=== PATIENT | female | born 1985 | race American Indian/Alaskan Native ===

== ENCOUNTER 2017-07-24 16:16 | Emergency (ER) | payer SELFPAY ==
[2017-07-24 16:26] VITALS: BP 142/91
[2017-07-24] MEDS ORDERED: NORCO 10/325 PO ONE (16:47)
--- NOTE | 2017-07-24 16:48 | Emergency Department Report ---
ED ENT HPI - General Chief complaint: Dental/Oral Stated complaint: MOUTH PAIN Time Seen by Provider: 07/24/17 16:39 Source: patient Mode of arrival: Ambulatory Limitations: No Limitations - History of Present Illness Initial comments: This is a 32 y.o. female presents with toothache for 1 month. She had a tooth break 1 month ago and pain has been on and off. She is taking ibuprofen to control pain. It was working until 4 days ago pain has been 10/10 and constant throbbing. Yesterday she was able to control the pain with ibuprofen but today pain is unrelieved. She is unable to eat or sleep and headache. She just started job and not sure what dentist will see her without insurance. Denies difficulty swallowing, SOB, and fever. MD complaint: tooth pain -: month(s) (1) Location: tooth # (2) Severity: severe Severity scale (0 -10): 10 Quality: other (throbbing) Consistency: constant Improves with: none Worsens with: eating Context- Dental: history of dental caries, trauma (cracked a tooth) Associated Symptoms: toothache - Related Data Previous Rx's Medication Instructions Recorded Last Taken Type Amoxicillin/Potassium Clav 1 each PO BID #20 tablet 07/24/17 Unknown Rx [Augmentin 875-125 Tablet] traMADol [Ultram 50 MG tab] 50 mg PO Q6HR PRN #20 tablet 07/24/17 Unknown Rx Allergies Allergy/AdvReac Type Severity Reaction Status Date / Time No Known Allergies Allergy Unverified 07/24/17 16:23 ED Dental HPI - General Chief complaint: Dental/Oral Stated complaint: MOUTH PAIN Time Seen by Provider: 07/24/17 16:39 Source: patient Mode of arrival: Ambulatory Limitations: No Limitations - Related Data Previous Rx's Medication Instructions Recorded Last Taken Type Amoxicillin/Potassium Clav 1 each PO BID #20 tablet 07/24/17 Unknown Rx [Augmentin 875-125 Tablet] traMADol [Ultram 50 MG tab] 50 mg PO Q6HR PRN #20 tablet 07/24/17 Unknown Rx Allergies Allergy/AdvReac Type Severity Reaction Status Date / Time No Known Allergies Allergy Unverified 07/24/17 16:23 ED Review of Systems ROS: Stated complaint: MOUTH PAIN Other details as noted in HPI Constitutional: denies: chills, fever ENT: dental pain. denies: ear pain, throat pain Respiratory: denies: cough, shortness of breath, wheezing Cardiovascular: denies: chest pain, palpitations Gastrointestinal: denies: abdominal pain, nausea, diarrhea Neurological: headache. denies: weakness, paresthesias ED Past Medical Hx - Past Medical History Previous Medical History?: No - Surgical History Past Surgical History?: No - Social History Smoking Status: Never Smoker Substance Use Type: Non Opiate Pain - Medications Home Medications: Home Medications Medication Instructions Recorded Confirmed Last Taken Type Amoxicillin/Potassium Clav 1 each PO BID #20 tablet 07/24/17 Unknown Rx [Augmentin 875-125 Tablet] traMADol [Ultram 50 MG tab] 50 mg PO Q6HR PRN #20 tablet 07/24/17 Unknown Rx ED Physical Exam - General Limitations: No Limitations General appearance: alert, in no apparent distress - ENT ENT exam: Present: mucous membranes moist, TM's normal bilaterally, other ( multiple dental caries, #2 fractured ) - Respiratory Respiratory exam: Present: normal lung sounds bilaterally. Absent: respiratory distress - Cardiovascular Cardiovascular Exam: Present: regular rate, normal rhythm, normal heart sounds. Absent: systolic murmur, diastolic murmur, rubs, gallop - GI/Abdominal GI/Abdominal exam: Present: soft, normal bowel sounds - Neurological Exam Neurological exam: Present: alert, oriented X3 ED Course Vital Signs 07/24/17 16:23 Temperature 98.3 F Pulse Rate 82 Respiratory 18 Rate Blood Pressure 142/91 O2 Sat by Pulse 99 Oximetry ED Medical Decision Making - Radiology Data Radiology results: image reviewed - Medical Decision Making This is a 32-year-old female that presents with toothache and headache for 4 days. Patient was examined by me. Distress noted. Given norco 10/325 mg po once in ER. Susceptible of dental caries and dental fracture. Discussed plan to start augmentin and tramadol and importance of following up with Dental to patient. She agreed with ER plan. Discharged home with augmentin and tramadol. Follow up with dentist and referral to [facility], [facility], and [facility]. Critical care attestation.: If time is entered above; I have spent that time in minutes in the direct care of this critically ill patient, excluding procedure time. ED Disposition Clinical Impression: Dental caries, Pain, dental Disposition: TO HOME OR SELFCARE Is pt being admited?: No Does the pt Need Aspirin: No Condition: Stable Instructions: Dental Caries (ED), Toothache (ED) Additional Instructions: Complete all days of augmentin as prescribed for 10 days. Follow up with Dentist in 24-72 hours. Prescriptions: Amoxicillin/Potassium Clav [Augmentin 875-125 Tablet] 1 each PO BID #20 tablet traMADol [Ultram 50 MG tab] 50 mg PO Q6HR PRN #20 tablet PRN Reason: Pain Referrals: [facility] [Outside] - 3-5 Days [facility] [Outside] - 3-5 Days [facility] [Outside] - 3-5 Days [facility] [Outside] - 3-5 Days Time of Disposition: 17:08 Print Language: SERBIAN
== END 2017-07-24 17:31 | disposition home or self-care (01) ==
LOC: ED 16:16
DX: K02.9 Dental caries, unspecified (principal)
CPT/HCPCS: 99282

== ENCOUNTER 2018-01-28 16:40 | Emergency (ER) | payer SELFPAY ==
[2018-01-28] MEDS ORDERED: NACL 0.9% 1000 ML 1,000 ML IV ONE (17:06)
[2018-01-28 17:35] LABS: Basophils % (Auto) 0.3 % (0.0-1.8); Eosinophils # (Auto) 0.1 K/mm3 (0.0-0.4); Eosinophils % (Auto) 1.3 % (0.0-4.3); Hematocrit 38.2 % (30.3-42.9); Hemoglobin 12.9 gm/dl (10.1-14.3); Lymphocytes # (Auto) 3.1 K/mm3 (1.2-5.4); Lymphocytes % (Auto) 34.6 % (13.4-35.0); Mean Corpuscular HGB Conc 34 % (30-34); Mean Corpuscular Hemoglobin 32 pg (28-32); Mean Corpuscular Volume 94 fl (79-97); Monocytes # (Auto) 0.6 K/mm3 (0.0-0.8); Monocytes % (Auto) 6.6 % (0.0-7.3); Platelet Count 368 K/mm3 (140-440); Red Blood Count 4.06 M/mm3 (3.65-5.03); Red Cell Distribution Width 13.6 % (13.2-15.2)
[2018-01-28 17:53] LABS: Alanine Aminotransferase 16 units/L (7-56); Albumin 4.3 g/dL (3.9-5); BUN/Creatinine Ratio 16; Blood Urea Nitrogen 14 mg/dL (7-17); Calcium 8.9 mg/dL (8.4-10.2); Hemolysis Index 9; Lipase 21 units/L (13-60)
[2018-01-28 18:49] LABS: Bilirubin,Urine NEG (Negative); Blood,Urine NEG (Negative); Color,Urine Yellow (Yellow); HCG Qualitative,Urine Negative (Negative); Mucus,Urine 3+ /HPF; Protein,Urine <15 mg/dL mg/dL (Negative); Urobilinogen,Urine < 2.0 mg/dL (<2.0)
[2018-01-29] MEDS ORDERED: SUBLIMAZE IV ONE (01:00)
[2018-01-29] MEDS ORDERED: ZOFRAN IV ONE (01:00)
--- NOTE | 2018-01-29 01:07 | Emergency Department Report ---
HPI - General Chief Complaint: Abdominal Pain Time Seen by Provider: 01/29/18 00:50 - HPI HPI: Room 10 The patient is a 32-year-old female presenting with a chief complaint of abdominal pain. The patient states symptoms began 2 days ago 5 hours after eating a pretzel dog from a restaurant. The patient states she developed nausea vomiting and diarrhea. Yesterday the patient continued to have nausea and vomiting. He then noticed a "lump"/source of pain just left and inferior to her umbilicus. Patient describes the pain as throbbing in nature. Patient denies dysuria, hematuria or vaginal discharge. Patient states her LMP occurred 01/14/2019 and was within normal limits. Patient denies any other forms of pain. Patient denies sick contacts. The patient gets her pain a score of 6/10 Location: [See above] Duration: 3 days Quality: Throbbing Severity:6/10 Modifying factors: [see above] Context: [see above] Mode of transportation: [not driving] ED Past Medical Hx - Past Medical History Additional medical history: h-pylori age 15 and treated - Surgical History Past Surgical History?: No Additional Surgical History: Skull fracture repair as a child - Family History Family history: no significant - Social History Smoking Status: Never Smoker Substance Use Type: Alcohol (rarely), Marijuana - Medications Home Medications: Home Medications Medication Instructions Recorded Confirmed Last Taken Type Amoxicillin/Potassium Clav 1 each PO BID #20 tablet 07/24/17 Unknown Rx [Augmentin 875-125 Tablet] traMADol [Ultram 50 MG tab] 50 mg PO Q6HR PRN #20 tablet 07/24/17 Unknown Rx Ciprofloxacin HCl [Cipro] 500 mg PO BID #20 tablet 01/29/18 Unknown Rx HYDROcodone/APAP 5-325 [[place] 1 - 2 each PO Q6HR PRN #14 tablet 01/29/18 Unknown Rx 5/325] Ibuprofen [Motrin 800 MG tab] 800 mg PO Q8HR PRN #20 tablet 01/29/18 Unknown Rx Promethazine [Phenergan TAB] 25 mg PO Q6HR PRN #20 tab 01/29/18 Unknown Rx Promethazine [Phenergan] 25 mg NE Q6HR PRN #5 supp.rect 01/29/18 Unknown Rx ED Review of Systems ROS: Stated complaint: POSS FOOD POISON Other details as noted in HPI Constitutional: fever (possibly subjective per mother) Eyes: denies: eye pain ENT: denies: throat pain Respiratory: no symptoms reported Cardiovascular: denies: chest pain Endocrine: no symptoms reported Gastrointestinal: abdominal pain, nausea, vomiting, diarrhea Genitourinary: denies: dysuria, hematuria, discharge, abnormal menses Musculoskeletal: denies: back pain Neurological: denies: headache Physical Exam - Physical Exam Vital Signs: Vital Signs 01/28/18 01/28/18 17:03 22:46 Temperature 98.8 F 98.1 F Pulse Rate 66 56 L Respiratory 18 16 Rate Blood Pressure 124/62 136/85 O2 Sat by Pulse 100 100 Oximetry Physical Exam: GENERAL: The patient is well-developed well-nourished female lying on stretcher not appearing to be in acute distress. [] HEENT: Normocephalic. Atraumatic. Extraocular motions are intact. Patient has moist mucous membranes. NECK: Supple. Trachea midline CHEST/LUNGS: Clear to auscultation. There is no respiratory distress noted. HEART/CARDIOVASCULAR: Regular. There is no tachycardia. There is no gallop rub or murmur. ABDOMEN: Abdomen is soft, with tenderness to palpation in all quadrants except for midepigastric and right upper quadrant. There is no rebound or guarding. Patient has normal bowel sounds. There is no abdominal distention. SKIN: There is no rash. There is no edema. There is no diaphoresis. NEURO: The patient is awake, alert, and oriented. The patient is cooperative. The patient has normal speech MUSCULOSKELETAL: There is left CVA tenderness. There is no evidence of acute injury. ED Course Vital Signs 01/28/18 01/28/18 17:03 22:46 Temperature 98.8 F 98.1 F Pulse Rate 66 56 L Respiratory 18 16 Rate Blood Pressure 124/62 136/85 O2 Sat by Pulse 100 100 Oximetry ED Medical Decision Making - Lab Data Result diagrams: 01/28/18 17:16 01/28/18 17:16 Laboratory Tests 01/28/18 01/28/18 01/28/18 17:16 17:16 17:56 WBC 9.1 RBC 4.06 Hgb 12.9 Hct 38.2 MCV 94 MCH 32 MCHC 34 RDW 13.6 Plt Count 368 Lymph % (Auto) 34.6 [place]cl[place] % (Auto) 6.6 Eos % (Auto) 1.3 Baso % (Auto) 0.3 Lymph # 3.1 [place]clain # 0.6 Eos # 0.1 Baso # 0.0 Seg Neutrophils % 57.2 Seg Neutrophils # 5.2 Sodium 140 Potassium 4.2 Chloride 104.3 Carbon Dioxide 25 Anion Gap 15 BUN 14 Creatinine 0.9 Estimated GFR > 60 BUN/Creatinine Ratio 16 Glucose 98 Calcium 8.9 Total Bilirubin 0.30 AST 21 ALT 16 Alkaline Phosphatase 88 Total Protein 6.9 Albumin 4.3 Albumin/Globulin Ratio 1.7 Lipase 21 Urine Color Yellow Urine Turbidity Slightly-cloudy Urine pH 6.0 Ur Specific [place] 1.024 Urine Protein <15 mg/dl Urine Glucose (UA) Neg Urine Ketones Neg Urine Blood Neg Urine Nitrite Neg Urine Bilirubin Neg Urine Urobilinogen < 2.0 Ur Leukocyte Esterase Lg Urine WBC (Auto) 82.0 H Urine RBC (Auto) 2.0 U Epithel Cells (Auto) < 1.0 Urine Mucus 3+ Urine HCG, Qual Negative - Radiology Data Radiology results: report reviewed (CT abdomen and pelvis), image reviewed (CT abdomen and pelvis) [address] [address] Cat Scan Report Signed Patient: MIGUEL ÁNGEL MARTE MR#: [id number] : 1985 Acct:[id number] Age/Sex: 32 / F ADM Date: 01/28/18 Loc: ED Attending Dr: Ordering Physician: JONATHAN CANTU MD Date of Service: 01/29/18 Procedure(s): CT abdomen pelvis w con Accession Number(s): [id number] cc: JONATHAN CANTU MD FINAL REPORT EXAM: CT ABDOMEN PELVIS W CON HISTORY: lower abdominal pain, nausea vomiting TECHNIQUE: Routine axial imaging was obtained of the abdomen and pelvis following the intravenous injection of 100 cc of Omnipaque 350. Sagittal and coronal reconstructions were reviewed. Delayed imaging was obtained through the kidneys ureters and bladder. FINDINGS: The lung bases are clear. Pleural fluid is not seen. The liver, gallbladder, biliary tree, pancreas, spleen, and adrenal glands appear normal. The kidneys show no evidence hydronephrosis. In the lower pole of left kidney is 2.4 cm staghorn type calculus with associated thinning of the adjacent cortex. The abdominal aorta is normal in caliber. The bowel loops are normal in caliber and course. The appendix is not enlarged. In the pelvis there is minimal free fluid. The uterus and bladder appear normal. There are small follicles both ovaries. The skeletal structures reveal arthritic changes lower lumbar spine. IMPRESSION: No acute process in the abdomen and pelvis. Staghorn calculus in left kidney with adjacent cortical thinning. Small amount of free fluid in the cul-de-sac. Normal appendix. Transcribed By: RB Dictated By: FAUSTINO THORNTON MD Electronically Authenticated By: FAUSTINO THORNTON MD Signed Date/Time: 01/29/18153 DD/ 3 TD/TT: 01/29/18153 - Differential Diagnosis pyelonephritis, diverticulitis, appendicitis, gastritis, gastroenteritis Critical care attestation.: If time is entered above; I have spent that time in minutes in the direct care of this critically ill patient, excluding procedure time. ED Disposition Clinical Impression: Acute abdominal pain, UTI (urinary tract infection), Staghorn renal calculus Disposition: TO HOME OR SELFCARE Is pt being admited?: No Does the pt Need Aspirin: No Condition: Stable Instructions: Abdominal Pain (ED) Additional Instructions: Return to the emergency department immediately should you develop worsening symptoms, fever, inability to tolerate food or liquid or any other concerns. Prescriptions: Ciprofloxacin HCl [Cipro] 500 mg PO BID #20 tablet HYDROcodone/APAP 5-325 [[place] 5/325] 1 - 2 each PO Q6HR PRN #14 tablet PRN Reason: Pain Ibuprofen [Motrin 800 MG tab] 800 mg PO Q8HR PRN #20 tablet PRN Reason: Pain, Moderate (4-6) Promethazine [Phenergan TAB] 25 mg PO Q6HR PRN #20 tab PRN Reason: Nausea Promethazine [Phenergan] 25 mg NE Q6HR PRN #5 supp.rect PRN Reason: Vomiting Referrals: PRIMARY CARE, [Primary Care Provider] - 3-5 Days BESSY العراقي MD [Staff Physician] - 2-3 Days (Dr. Meier is a urologist. Please follow up with him for further evaluation) Time of Disposition: 02:17
[2018-01-29] MEDS ORDERED: NACL 0.9% 1000 ML 1,000 ML ONE (01:23)
--- NOTE | 2018-01-29 01:56 | Cat Scan Report ---
FINAL REPORT EXAM: CT ABDOMEN PELVIS W CON HISTORY: lower abdominal pain, nausea vomiting TECHNIQUE: Routine axial imaging was obtained of the abdomen and pelvis following the intravenous injection of 100 cc of Omnipaque 350. Sagittal and coronal reconstructions were reviewed. Delayed imaging was obtained through the kidneys ureters and bladder. FINDINGS: The lung bases are clear. Pleural fluid is not seen. The liver, gallbladder, biliary tree, pancreas, spleen, and adrenal glands appear normal. The kidneys show no evidence hydronephrosis. In the lower pole of left kidney is 2.4 cm staghorn type calculus with associated thinning of the adjacent cortex. The abdominal aorta is normal in caliber. The bowel loops are normal in caliber and course. The appendix is not enlarged. In the pelvis there is minimal free fluid. The uterus and bladder appear normal. There are small follicles both ovaries. The skeletal structures reveal arthritic changes lower lumbar spine. IMPRESSION: No acute process in the abdomen and pelvis. Staghorn calculus in left kidney with adjacent cortical thinning. Small amount of free fluid in the cul-de-sac. Normal appendix.
[2018-01-29] MEDS ORDERED: REGLAN IV ONE (02:17)
[2018-01-29 02:33] VITALS: BP 132/74
== END 2018-01-29 02:52 | disposition home or self-care (01) ==
LOC: ED 16:40
DX: N39.0 Urinary tract infection, site not specified (principal); N20.0 Calculus of kidney
CPT/HCPCS: 36415; 74177; 80053; 81001; 81025; 83690; 85025; 96361; 96374; 96375; 99284; J2405; J2765; J3010; J7030; Q9967; 96367

== ENCOUNTER 2018-09-22 18:49 | Emergency (ER) | payer BC ==
--- NOTE | 2018-09-22 21:35 | Emergency Department Report ---
Chief Complaint: Upper Respiratory Infection Stated Complaint: COUGHING/HEADACHE/DIARRHEA Time Seen by Provider: 09/22/18 21:31 - HPI History of Present Illness: pt presents for a cough that began three days ago mucus production (+) congestion no rhinorrhea, no sore throat, no ear ache pt also has diarrhea for two days, states she is on macrobid for UTI no fever LNMP a week ago +smoker non drinker no drug use no PMHx no allergies - Exam Vital Signs: Vital Signs 09/22/18 19:28 Temperature 98.3 F Pulse Rate 82 Respiratory 18 Rate Blood Pressure 126/89 O2 Sat by Pulse 100 Oximetry MSE screening note: Focused history performed Due to findings the following was ordered: CXR
--- NOTE | 2018-09-22 22:21 | XRay Report ---
PROCEDURE: XR CHEST ROUTINE 2V TECHNIQUE: PA and lateral chest radiographs were obtained. HISTORY: cough COMPARISONS: None. FINDINGS: Heart: Normal. Mediastinum/Vessels: Normal. Lungs/Pleural space: Normal. Bony thorax: No acute osseous abnormality. IMPRESSION: Normal examination. This document is electronically signed by William Anderson MD., September 22 2018 10:19:14 PM ET
[2018-09-23] MEDS ORDERED: IBUPROFEN PO ONE (00:58)
[2018-09-23] MEDS ORDERED: TESSALON PERLES PO ONE (00:58)
--- NOTE | 2018-09-23 01:04 | Emergency Department Report ---
- General Chief Complaint: Upper Respiratory Infection Stated Complaint: COUGHING/HEADACHE/DIARRHEA Time Seen by Provider: 09/22/18 21:31 Source: patient Mode of arrival: Ambulatory Limitations: No Limitations - History of Present Illness Initial Comments: This is a 33-year-old female nontoxic, well nourished in appearance, no acute signs of distress presents to the ED with c/o of productive cough, rhinorrhea, nasal congestion x3 days. Patient describes productive cough as yellow mucus production. Patient agrees to sick contact with cousin which has the flu. Patient denies any recent travels, long car, recent hospital stays. Patient denies any calf pain or calf tenderness. Patient denies any chest pain, short of breath, fever, chills, nausea, vomiting, hemoptysis, numbness, tingling, headache or stiff neck. Patient denies any drug allergies. -: days(s) (3) Severity: mild Improves With: nothing Worsens With: nothing Associated Symptoms: rhinorrhea, nasal congestion, cough. denies: fever, chills, myalgias, diaphoresis, headache, sore throat, stiff neck, chest pain, shortness of breath, abdominal pain, nausea, vomiting, diarrhea, dysuria, rash, confusion, right sweats, weight loss, epistaxis, hoarseness, ear pain Treatments Prior to Arrival: none - Related Data Previous Rx's Medication Instructions Recorded Last Taken Type Amoxicillin/Potassium Clav 1 each PO BID #20 tablet 07/24/17 Unknown Rx [Augmentin 875-125 Tablet] traMADol [Ultram 50 MG tab] 50 mg PO Q6HR PRN #20 tablet 07/24/17 Unknown Rx Ciprofloxacin HCl [Cipro] 500 mg PO BID #20 tablet 01/29/18 Unknown Rx HYDROcodone/APAP 5-325 [[place] 1 - 2 each PO Q6HR PRN #14 tablet 01/29/18 Unknown Rx 5/325] Ibuprofen [Motrin 800 MG tab] 800 mg PO Q8HR PRN #20 tablet 01/29/18 Unknown Rx Promethazine [Phenergan TAB] 25 mg PO Q6HR PRN #20 tab 01/29/18 Unknown Rx Promethazine [Phenergan] 25 mg MA Q6HR PRN #5 supp.rect 01/29/18 Unknown Rx Cyclobenzaprine [Flexeril] 10 mg PO QHS PRN #20 tablet 07/16/[address] (Nf) 50 mg PO BID #30 tablet. 07/16/18 Unknown Rx Azithromycin [Zithromax Z-CASEY] 250 mg PO DAILY #6 tablet 09/23/18 Unknown Rx Benzonatate [Tessalon Perle] 100 mg PO Q8H PRN #20 capsule 09/23/18 Unknown Rx Ibuprofen [Motrin] 600 mg PO Q8H PRN #20 tablet 09/23/18 Unknown Rx Allergies Allergy/AdvReac Type Severity Reaction Status Date / Time No Known Allergies Allergy Verified 09/22/18 19:29 ED Review of Systems ROS: Stated complaint: COUGHING/HEADACHE/DIARRHEA Other details as noted in HPI Constitutional: denies: chills, fever Eyes: denies: eye pain, eye discharge, vision change ENT: denies: ear pain, throat pain Respiratory: cough. denies: shortness of breath, wheezing Cardiovascular: denies: chest pain, palpitations Endocrine: no symptoms reported Gastrointestinal: denies: abdominal pain, nausea, diarrhea Genitourinary: denies: urgency, dysuria, discharge Musculoskeletal: denies: back pain, joint swelling, arthralgia Skin: denies: rash, lesions Neurological: denies: headache, weakness, paresthesias Psychiatric: denies: anxiety, depression Hematological/Lymphatic: denies: easy bleeding, easy bruising ED Past Medical Hx - Past Medical History Additional medical history: h-pylori age 15 and treated, chronic back pain with sciatica - Surgical History Additional Surgical History: Skull fracture repair as a child - Social History Smoking Status: Current Every Day Smoker Substance Use Type: None - Medications Home Medications: Home Medications Medication Instructions Recorded Confirmed Last Taken Type Amoxicillin/Potassium Clav 1 each PO BID #20 tablet 07/24/17 Unknown Rx [Augmentin 875-125 Tablet] traMADol [Ultram 50 MG tab] 50 mg PO Q6HR PRN #20 tablet 07/24/17 Unknown Rx Ciprofloxacin HCl [Cipro] 500 mg PO BID #20 tablet 01/29/18 Unknown Rx HYDROcodone/APAP 5-325 [[place] 1 - 2 each PO Q6HR PRN #14 tablet 01/29/18 Unknown Rx 5/325] Ibuprofen [Motrin 800 MG tab] 800 mg PO Q8HR PRN #20 tablet 01/29/18 Unknown Rx Promethazine [Phenergan TAB] 25 mg PO Q6HR PRN #20 tab 01/29/18 Unknown Rx Promethazine [Phenergan] 25 mg MA Q6HR PRN #5 supp.rect 01/29/18 Unknown Rx Cyclobenzaprine [Flexeril] 10 mg PO QHS PRN #20 tablet 07/16/[address] (Nf) 50 mg PO BID #30 tablet.dr 07/16/18 Unknown Rx Azithromycin [Zithromax Z-CASEY] 250 mg PO DAILY #6 tablet 09/23/18 Unknown Rx Benzonatate [Tessalon Perle] 100 mg PO Q8H PRN #20 capsule 09/23/18 Unknown Rx Ibuprofen [Motrin] 600 mg PO Q8H PRN #20 tablet 09/23/18 Unknown Rx ED Physical Exam - General Limitations: No Limitations General appearance: alert, in no apparent distress - Head Head exam: Present: atraumatic, normocephalic - Eye Eye exam: Present: normal appearance - ENT ENT exam: Present: normal exam, normal orophraynx - Neck Neck exam: Present: normal inspection, full ROM. Absent: tenderness, meningismus, lymphadenopathy - Respiratory Respiratory exam: Present: normal lung sounds bilaterally. Absent: respiratory distress, wheezes, rales, rhonchi, stridor, chest wall tenderness, accessory muscle use, decreased breath sounds, prolonged expiratory - Cardiovascular Cardiovascular Exam: Present: regular rate, normal rhythm, normal heart sounds. Absent: bradycardia, tachycardia, irregular rhythm, systolic murmur, diastolic murmur, rubs, gallop - Extremities Exam Extremities exam: Present: normal inspection, full ROM - Back Exam Back exam: Present: normal inspection, full ROM - Neurological Exam Neurological exam: Present: alert, oriented X3 - Psychiatric Psychiatric exam: Present: normal affect, normal mood - Skin Skin exam: Present: warm, dry, intact, normal color. Absent: rash ED Course Vital Signs 09/22/18 09/22/18 19:28 21:32 Temperature 98.3 F 98.3 F Pulse Rate 82 83 Respiratory 18 18 Rate Blood Pressure 126/89 126/89 O2 Sat by Pulse 100 100 Oximetry - Reevaluation(s) Reevaluation #1: 09/23/18 01:02 Patient is speaking in full sentences with no signs of distress noted. ED Medical Decision Making - Medical Decision Making This is a 33-year-old female that presents with bronchitis. Patient is stable and was examined by me. Chest x-ray has been obtained and dictated by radiologist with normal exam. Patient is notified of x-ray results with no q uestions noted. Due to patient having symptoms of upper respiratory infection and worsening I will treat patient empirically with zpak. Patient was instructed to increase hydration, rest and take Motrin for fever episodes. Patient received motrin and tesslone perrls in the ED. Vitals stable. Patient is nonfebrile and normal heart rate. Patient was instructed Follow-up with a primary care doctor in 3-5 days or if symptoms worsen and continue return to emergency room as soon as possible. At time time of discharge, the patient does not seem toxic or ill in appearance. No acute signs of distress noted. Patient agrees to discharge treatment plan of care. No further questions noted by the patient. Critical care attestation.: If time is entered above; I have spent that time in minutes in the direct care of this critically ill patient, excluding procedure time. ED Disposition Clinical Impression: Bronchitis Disposition: DC-01 TO HOME OR SELFCARE Is pt being admited?: No Does the pt Need Aspirin: No Condition: Stable Instructions: Acute Bronchitis (ED) Additional Instructions: Follow-up with a primary care doctor in 3-5 days or if symptoms worsen and cont inue return to emergency room as soon as possible. Prescriptions: Ibuprofen [Motrin] 600 mg PO Q8H PRN #20 tablet PRN Reason: Pain Benzonatate [Tessalon Perle] 100 mg PO Q8H PRN #20 capsule PRN Reason: Cough Azithromycin [Zithromax Z-CASEY] 250 mg PO DAILY #6 tablet Referrals: LAURENCE HERNANDEZ MD [Primary Care Provider] - 3-5 Days PRIMARY MD DIANNE [Referring] - 3-5 Days EMANI PORTILLO MD [Staff Physician] - 3-5 Days [facility] [Outside] - 3-5 Days [facility] [Outside] - 3-5 Days Forms: Work/School Release Form(ED)
[2018-09-23 01:34] VITALS: BP 119/80
== END 2018-09-23 01:34 | disposition home or self-care (01) ==
LOC: ED 18:49
DX: J40 Bronchitis, not specified as acute or chronic (principal); G89.29 Other chronic pain; F17.200 Nicotine dependence, unspecified, uncomplicated
CPT/HCPCS: 71046

== ENCOUNTER 2021-06-12 17:59 | Emergency (ER) | payer BC ==
[2021-06-12 18:04] VITALS: BP 157/102
--- NOTE | 2021-06-12 18:25 | Emergency Department Report ---
ED General Adult HPI - General Chief complaint: Chest Pain Stated complaint: CHEST PAIN Time Seen by Provider: 06/12/21 18:06 Source: patient Mode of arrival: Ambulatory Limitations: No Limitations - History of Present Illness Initial comments: Patient is a 36-year-old female with no significant past medical history. Patient presented to the ER complaining of left-sided chest pain started this afternoon. Patient described her chest pain as sharp increases with inspiration. Patient stated that she has been having runny nose cough congestion body ache and chills for the last 3 weeks. Patient stated that she tested negative for COVID-19. -: This afternoon Location: chest, left Radiation: non-radiation Severity scale (0 -10): 5 Consistency: intermittent Associated Symptoms: denies other symptoms, chest pain - Related Data Previous Rx's Medication Instructions Recorded Last Taken Type Amoxicillin/Potassium Clav 1 each PO BID #20 tablet 07/24/17 Unknown Rx [Augmentin 875-125 Tablet] traMADoL [Ultram 50 MG tab] 50 mg PO Q6HR PRN #20 tablet 07/24/17 Unknown Rx Ciprofloxacin HCl [Cipro] 500 mg PO BID #20 tablet 01/29/18 Unknown Rx HYDROcodone/APAP 5-325 [[place] 1 - 2 each PO Q6HR PRN #14 tablet 01/29/18 Unknown Rx 5/325] Ibuprofen [Motrin 800 MG tab] 800 mg PO Q8HR PRN #20 tablet 01/29/18 Unknown Rx Promethazine [Phenergan TAB] 25 mg PO Q6HR PRN #20 tab 01/29/18 Unknown Rx Promethazine [Phenergan] 25 mg AL Q6HR PRN #5 supp.rect 01/29/18 Unknown Rx Cyclobenzaprine [Flexeril] 10 mg PO QHS PRN #20 tablet 07/16/[address] (Nf) 50 mg PO BID #30 tablet.dr 07/16/18 Unknown Rx Azithromycin [Zithromax Z-CASEY] 250 mg PO DAILY #6 tablet 09/23/18 Unknown Rx Benzonatate [Tessalon Perle] 100 mg PO Q8H PRN #20 capsule 09/23/18 Unknown Rx Ibuprofen [Motrin] 600 mg PO Q8H PRN #20 tablet 09/23/18 Unknown Rx Allergies Allergy/AdvReac Type Severity Reaction Status Date / Time No Known Allergies Allergy Verified 09/22/18 19:29 ED Review of Systems ROS: Stated complaint: CHEST PAIN Other details as noted in HPI Comment: All other systems reviewed and negative Constitutional: denies: chills, fever ENT: congestion Respiratory: cough. denies: shortness of breath, SOB with exertion, SOB at rest Cardiovascular: chest pain. denies: palpitations, dyspnea on exertion Gastrointestinal: denies: abdominal pain, nausea, vomiting, diarrhea, constipation, hematemesis, melena, hematochezia Musculoskeletal: denies: back pain Neurological: denies: headache, weakness, numbness, paresthesias, confusion ED Past Medical Hx - Past Medical History Previous Medical History?: Yes Additional medical history: h-pylori age 15 and treated, chronic back pain with sciatica - Surgical History Past Surgical History?: Yes Additional Surgical History: Skull fracture repair as a child - Social History Smoking Status: Current Every Day Smoker Substance Use Type: None - Medications Home Medications: Home Medications Medication Instructions Recorded Confirmed Last Taken Type Amoxicillin/Potassium Clav 1 each PO BID #20 tablet 07/24/17 Unknown Rx [Augmentin 875-125 Tablet] traMADoL [Ultram 50 MG tab] 50 mg PO Q6HR PRN #20 tablet 07/24/17 Unknown Rx Ciprofloxacin HCl [Cipro] 500 mg PO BID #20 tablet 01/29/18 Unknown Rx HYDROcodone/APAP 5-325 [[place] 1 - 2 each PO Q6HR PRN #14 tablet 01/29/18 Unknown Rx 5/325] Ibuprofen [Motrin 800 MG tab] 800 mg PO Q8HR PRN #20 tablet 01/29/18 Unknown Rx Promethazine [Phenergan TAB] 25 mg PO Q6HR PRN #20 tab 01/29/18 Unknown Rx Promethazine [Phenergan] 25 mg AL Q6HR PRN #5 supp.rect 01/29/18 Unknown Rx Cyclobenzaprine [Flexeril] 10 mg PO QHS PRN #20 tablet 07/16/[address] (Nf) 50 mg PO BID #30 tablet.dr 07/16/18 Unknown Rx Azithromycin [Zithromax Z-CASEY] 250 mg PO DAILY #6 tablet 09/23/18 Unknown Rx Benzonatate [Tessalon Perle] 100 mg PO Q8H PRN #20 capsule 09/23/18 Unknown Rx Ibuprofen [Motrin] 600 mg PO Q8H PRN #20 tablet 09/23/18 Unknown Rx ED Physical Exam - General Limitations: No Limitations General appearance: alert, in no apparent distress - Head Head exam: Present: atraumatic, normocephalic, normal inspection - Eye Eye exam: Present: normal appearance, PERRL - ENT ENT exam: Present: normal exam, normal orophraynx, mucous membranes moist - Neck Neck exam: Present: normal inspection, full ROM. Absent: tenderness, meningismus - Respiratory Respiratory exam: Present: normal lung sounds bilaterally - Cardiovascular Cardiovascular Exam: Present: regular rate, normal rhythm, normal heart sounds - GI/Abdominal GI/Abdominal exam: Present: soft, normal bowel sounds. Absent: distended, tenderness, guarding, rebound, rigid, organomegaly, mass, bruit, pulsatile mass, hernia - Extremities Exam Extremities exam: Present: normal inspection, full ROM, normal capillary refill. Absent: tenderness - Back Exam Back exam: Present: normal inspection, full ROM. Absent: CVA tenderness (R), CVA tenderness (L) - Neurological Exam Neurological exam: Present: alert, oriented X3, CN II-XII intact, normal gait, reflexes normal. Absent: motor sensory deficit - Psychiatric Psychiatric exam: Present: normal mood - Skin Skin exam: Present: warm, intact, normal color ED Course Vital Signs 06/12/21 18:02 Temperature 98 F Pulse Rate 72 Respiratory 16 Rate Blood Pressure 157/102 [Left] O2 Sat by Pulse 100 Oximetry ED Medical Decision Making - Lab Data Result diagrams: 06/12/21 18:32 06/12/21 18:32 - EKG Data -: EKG Interpreted by Id EKG shows normal: sinus rhythm Rate: normal - EKG Data Interpretation: no acute changes - Radiology Data Radiology results: report reviewed - Medical Decision Making Patient is a 36-year-old female with no significant past medical history. Patient presented to the ER complaining of left-sided chest pain started this afternoon. Patient described her chest pain as sharp increases with inspiration. Patient stated that she has been having runny nose cough congestion body ache and chills for the last 3 weeks. Patient stated that she tested negative for COVID-19. EKG is unremarkable. Chest x-ray is negative for acute finding. Labs reviewed and is unremarkable including troponin and D-dimer. Patient symptom is most likely related to pleurisy given her recent history of upper respiratory infection. Patient received Toradol 60 mg IM with improvement of her symptoms. Patient given prescription for Naprosyn and advised to follow-up with her primary doctor in the next 2 to 3 days and to return to the ER if she develop any new symptoms. Critical care attestation.: If time is entered above; I have spent that time in minutes in the direct care of this critically ill patient, excluding procedure time. ED Disposition Clinical Impression: Acute chest pain, Pleurisy Disposition: 01 HOME / SELF CARE / HOMELESS Is pt being admited?: No Condition: Stable Instructions: Chest Pain (ED), Nonspecific Chest Pain, Adult, Pleurisy Referrals: [facility] [Provider Group] - 3-5 Days
[2021-06-12 18:48] LABS: Basophils # (Auto) 0.1 K/mm3 (0.0-0.1); Basophils % (Auto) 0.9 % (0.0-1.8); Eosinophils % (Auto) 0.5 % (0.0-4.3); Hematocrit 38.4 % (30.3-42.9); Hemoglobin 12.7 gm/dl (10.1-14.3); Lymphocytes # (Auto) 2.6 K/mm3 (1.2-5.4); Lymphocytes % (Auto) 30.2 % (13.4-35.0); Mean Corpuscular HGB Conc 33 % (30-34); Mean Corpuscular Volume 96 fl (79-97); Monocytes # (Auto) 0.8 K/mm3 (0.0-0.8); Monocytes % (Auto) 9.3 % (0.0-7.3); Platelet Count 328 K/mm3 (140-440); Red Cell Distribution Width 13.5 % (13.2-15.2)
[2021-06-12 18:57] LABS: INR 0.88 (0.87-1.13)
[2021-06-12 18:58] LABS: Partial Thromboplastin Time 29.7 Sec. (24.2-36.6)
[2021-06-12 19:03] LABS: BUN/Creatinine Ratio 18; Blood Urea Nitrogen 14 mg/dL (7-17); Calcium 8.8 mg/dL (8.4-10.2); Hemolysis Index 17
--- NOTE | 2021-06-12 19:45 | XRay Report ---
CHEST 2 VIEWS INDICATION / CLINICAL INFORMATION: Chest Pain. COMPARISON: None available. FINDINGS: SUPPORT DEVICES: None. HEART / MEDIASTINUM: No significant abnormality. LUNGS / PLEURA: No significant pulmonary or pleural abnormality. No pneumothorax. ADDITIONAL FINDINGS: Bilateral nipple piercings again noted IMPRESSION: 1. No acute findings. Signer Name: Fabian Navarro MD Signed: 06/12/2021 7:41 PM Workstation Name: [id number]
[2021-06-12] MEDS ORDERED: KETOROLAC 60 MG/2 ML INJ IM ONE (19:55)
--- NOTE | 2021-06-13 10:04 | Electrocardiograph Report ---
[facility] Test Date: 2021-06-12 Test Time: 18:18:05 Pat Name: MIGUEL ÁNGEL MARTE Department: Room: Gender: F Driller Portable: ANDRES MEYERB: 1985 Requested By: MICHAEL BALL Order Number: [id number] Reading MD: Antonio Briggs Measurements Intervals Brandon Rate: 65 P: 6 WA: 131 QRS: 11 QRSD: 88 T: 6 QT: 414 QTc: 432 Interpretive Statements Sinus rhythm No previous ECG available for comparison Electronically Signed On 06-13-2021 10:04:22 EST by Antonio Briggs
== END 2021-06-12 20:39 | disposition home or self-care (01) ==
LOC: ED 17:59
DX: R07.9 Chest pain, unspecified (principal); R09.1 Pleurisy; F17.200 Nicotine dependence, unspecified, uncomplicated
CPT/HCPCS: 36415; 71045; 80048; 83690; 84484; 84703; 85025; 85379; 85610; 85730; 93005; 96372; 99283; J1885